=== PATIENT | female | born 2000 | race Caucasian/White ===

== ENCOUNTER 2021-06-09 16:21 | Emergency (ER) | payer OTHER ==
[~2021-06-09] VITALS: Ht 160 cm; Wt 82.6 kg
[2021-06-09 16:26] VITALS: BP 118/69
--- NOTE | 2021-06-09 16:35 | NUR ---
PT AMBULATED TO BED 4.
--- NOTE | 2021-06-09 16:38 | NUR ---
DR PRIETO AT BEDSIDE EXAMINING PT
--- NOTE | 2021-06-09 16:40 | NUR ---
21/F BIB BOYFRIEND WITH C/O SPOTTING AND LOWER ABDOMINAL CRAMPING X2 DAYS. STATES SHE NOTICES "LIGHT PINK BLOOD WHEN WIPING." REPORTS TAKING TYLENOL YESTERDAY WITH MID RELIEF. DENIES N/V/D, CP, SOB. A0 PT STATES 5/10 PAIN. MEDHX: DENIES ALLERGIES: DENIES
--- NOTE | 2021-06-09 16:42 | NUR ---
DR PRIETO AT BEDSIDE PERFORMING ULTRASOUND
[2021-06-09 17:03] LABS: APPEARANCE,URINE HAZY (CLEAR); BILIRUBIN,URINE NEGATIVE (NEGATIVE); BLOOD, URINE 3+ (NEGATIVE); COLOR,URINE YELLOW (YELLOW); LEUKOCYTE ESTERASE ,URINE TRACE (NEGATIVE); NITRITE, URINE NEGATIVE (NEGATIVE); PH,URINE 5.5 (5.0-9.0); UGLUCOSE NEGATIVE (NEGATIVE)
--- NOTE | 2021-06-09 17:10 | NUR ---
ULTRASOUND AT BEDSIDE
[2021-06-09 17:12] LABS: RBC,URINE 11-20 (MOD) /HPF (0-5)
--- NOTE | 2021-06-09 18:04 | NUR ---
BLOOD LABS COLLECTED AND SENT TO LAB WITH SEAMUS STEPHENSON
[2021-06-09 18:08] LABS: BASOPHILS # (AUTO) 0.1 K/uL (0.00-0.22); BASOPHILS % (AUTO) 0.9 % (0.0-2.0); EOSINOPHILS # (AUTO) 1.1 K/uL (0-0.4); EOSINOPHILS % (AUTO) 7.1 % (0.0-4.0); HEMATOCRIT 40.7 % (36-48); HEMOGLOBIN 13.8 g/dL (12.0-16.0); LYMPHOCYTES # (AUTO) 4.8 K/uL (2.5-16.5); LYMPHOCYTES % (AUTO) 31.5 % (20.5-51.1); MEAN CORPUSCULAR HEMOGLOBIN 29 pg (27-31); MEAN CORPUSCULAR HGB CONC 34 g/dL (33-37); MEAN CORPUSCULAR VOLUME 85.5 fL (80-94); MONOCYTES # (AUTO) 0.9 K/uL (0.8-1.0); MONOCYTES % (AUTO) 5.7 % (1.7-9.3); NEUTROPHILS # (AUTO) 8.4 K/uL (1.8-7.7); NEUTROPHILS % (AUTO) 54.8 % (42.2-75.2); PLATELET COUNT (AUTO) 412 K/uL (140-450); RED BLOOD CELL COUNT(AUTO) 4.76 MIL/uL (4.20-5.40); RED CELL DISTRIBUTION WIDTH 13.8 % (11.6-13.7); WHITE BLOOD COUNT (AUTO) 15.3 K/uL (4.8-10.8)
--- NOTE | 2021-06-09 18:15 | NUR ---
PT REQUESTING FOR APPLE JUICE, PER DR CONNER ZENG TO GIVE. PROVIDED WITH APPLE JUICE
[2021-06-09 18:20] LABS: ALBUMIN 3.5 g/dL (3.4-5.0); ANION GAP 10.5 (8-16); CARBON DIOXIDE 26.5 mmol/L (21-32); CREATININE 0.7 mg/dL (0.6-1.3); TOTAL BILIRUBIN 0.3 mg/dL (0.0-1.0)
--- NOTE | 2021-06-09 19:06 | NUR ---
PT STATED WHILE USING THE RESTROOM, SHE HAD SUDDEN PAIN ONSET AND BLEEDING UPON WIPING. DR CUNNINGHAM MADE AWARE.
[2021-06-09] MEDS ORDERED: CEPH-588 PO (19:09)
--- NOTE | 2021-06-09 19:14 | NUR ---
Pt report given to YORDAN PERALTA. Transfer of care at this time.
--- NOTE | 2021-06-09 19:20 | NUR ---
PELVIC EXAM DONE PER DR. CUNNINGHAM. FEMALE LUMBER PILER (MYSELF) AT BEDSIDE.
[2021-06-09 19:33] VITALS: BP 120/70
== END 2021-06-09 19:33 | disposition home or self-care (01) ==
LOC: MED 16:21
DX: O46.91 Antepartum hemorrhage, unspecified, first trimester (principal); Z3A.01 Less than 8 weeks gestation of pregnancy; Z79.2 Long term (current) use of antibiotics
CPT/HCPCS: 36415; 76801; 80053; 81001; 81025; 84702; 85025; 86886; 86900; 86901; 87086; 99284; Q0092